=== PATIENT | male | born 1965 | race African-American/Black ===

== ENCOUNTER 2018-12-14 04:22 | Emergency (ER) | payer SELFPAY ==
[~2018-12-14] VITALS: Ht 190.5 cm; Wt 95.3 kg
[2018-12-14 04:22] VITALS: BP 139/89
[2018-12-14] MEDS: IBUPROFEN 600 MG TAB PO ONE (04:56)
[2018-12-14 07:05] VITALS: BP 128/82
== END 2018-12-14 07:05 ==
LOC: MED 04:22
DX: S60.811A Abrasion of right wrist, initial encounter (principal); S60.812A Abrasion of left wrist, initial encounter; S60.511A Abrasion of right hand, initial encounter; S60.512A Abrasion of left hand, initial encounter; Z02.89 Encounter for other administrative examinations; X58.XXXA Exposure to other specified factors, initial encounter; Y93.89 Activity, other specified; Y92.89 Other specified places as the place of occurrence of the external cause; Y99.8 Other external cause status
CPT/HCPCS: 71045; 73130; 73610; 99283; Q0092